=== PATIENT | male | born 1990 | race Two or more races ===

== ENCOUNTER 2018-06-28 18:58 | Emergency (ER) | payer MEDICAID ==
[~2018-06-28] VITALS: Ht 193 cm; Wt 124.0 kg
[2018-06-29] MEDS ORDERED: IBUPROFEN 800MG TABLET PO ONE (01:30)
[2018-06-29 03:07] VITALS: BP 142/83
== END 2018-06-29 03:33 | disposition home or self-care (01) ==
LOC: ER 18:58
DX: M94.0 Chondrocostal junction syndrome [Tietze] (principal); I10 Essential (primary) hypertension; F17.210 Nicotine dependence, cigarettes, uncomplicated
CPT/HCPCS: 71045; 93005; 99283